=== PATIENT | male | born 1985 | race African-American/Black ===

== ENCOUNTER 2019-04-27 08:15 | Outpatient (CLI) | payer MEDICARE ==
[~2019-04-27] VITALS: Ht 172.7 cm; Wt 90.9 kg
--- NOTE | ~2019-04-27 | HEMODYNAMI ---
PATIENT:MARK ROBLERO MEDICAL RECORD: [id number] : 81 [id number] ADMISSION DATE: 04/27/19 Generatedon:04/27/201912:29 Patient name: MARK ROBLERO Patient #: [id number] SSN: DO B: 1985 Date of study: 04/27/2019 Page: Of Hemodynamic Procedure Report Patient Data Patient Demographics Procedure consent was obtained First Name: MARK Gender: Male Last Name: OSBALDO : 1985 [facility] Initial: B Age: 34 year(s) Patient #: [id number] Race: Black Additional ID: [id number] Contact details Address: [address] State: [place] City: [place] Zip code: [address] Admission Admission Data Admission Date: 04/27/2019 Admission Time: 8:15 Procedure Procedure Types Cath Procedure Peripheral Cath Diagnostic Procedure Miscellaneous Procedure Description Procedure Date Procedure Date: 04/27/2019 Procedure Start Time: 10:50 Procedure Staff Name Function Donte Denney MD Performing Physician Neftali Headley RT Monitor KENDALL DE SANTIAGO RT Monitor Tiff Mckeon RN Nurse Procedure Data Cath Procedure Fluoroscopy Diagnostic fluoroscopy Total fluoroscopy Time: time: 24.8 min 24.8 min Diagnostic fluoroscopy Total fluoroscopy dose: dose: 1522 mGy 1522 mGy Contrast Material Contrast Material Type Amount (ml) Isovue 300 90 Procedure Medications Medication Administration Route Dosage Heparin Flush Bag added to field 2 bags (1000units/500ml NS) Lidocaine 1% added to field 20 Fentanyl I.V. 25 mcg Versed I.V. 0.5 mg Versed I.V. 0.5 mg Fentanyl I.V. 25 mcg Fentanyl I.V. 25 mcg Versed I.V. 0.5 mg Hemodynamics Rest Heart Rate: 79 (bpm) Snapshots Pre Cath Intra NCS Post Cath Vital Signs Time Heart Resp SPO2 etCO2 NIBP (mmHg) Rhythm Pain Sedation Rate (ipm) (%) (mmHg) Status Level (bpm) 10:33:52 77 21 99 36 127/85(111) NSR 0 (11) 10(A) , No pain 10:38:02 80 15 97 36 126/86(109) NSR 0 (11) 10(A) , No pain 10:42:12 80 19 99 37.5 125/80(102) NSR 0 (11) 10(A) , No pain 10:46:20 80 18 97 36.8 131/83(100) NSR 0 (11) 10(A) , No pain 10:50:30 78 13 100 36.8 132/88(111) NSR 0 (11) 10(A) , No pain 10:54:40 77 15 100 33.8 136/87(113) NSR 0 (11) 10(A) , No pain 10:58:54 76 100 36.8 130/83(104) NSR 0 (11) 8(A) , No pain 11:03:03 79 13 100 39 136/89(103) NSR 0 (11) 8(A) , No pain 11:07:13 77 15 100 39 125/79(96) NSR 0 (11) 8(A) , No pain 11:11:25 78 16 99 40.5 123/74(92) NSR 0 (11) 8(A) , No pain 11:15:33 83 22 100 38.3 117/82(99) NSR 0 (11) 8(A) , No pain 11:20:28 83 15 100 37.5 136/90(114) NSR 0 (11) 8(A) , No pain 11:24:38 81 17 100 32.3 136/93(108) NSR 0 (11) 8(A) , No pain 11:28:46 83 17 99 39.8 127/85(104) NSR 0 (11) 8(A) , No pain 11:32:56 84 16 99 39.8 134/82(91) NSR 0 (11) 8(A) , No pain 11:37:08 91 13 97 41.3 128/85(99) NSR 0 (11) 8(A) , No pain 11:41:22 86 15 97 40.5 134/78(95) NSR 0 (11) 8(A) , No pain 11:45:38 93 14 98 39.8 120/70(95) NSR 0 (11) 8(A) , No pain 11:49:47 80 16 97 38.3 129/75(94) NSR 0 (11) 8(A) , No pain 11:54:02 86 15 98 39.8 124/77(90) NSR 0 (11) 8(A) , No pain 11:58:13 82 17 98 36 122/73(100) NSR 0 (11) 8(A) , No pain 12:02:26 87 15 98 38.3 124/74(91) NSR 0 (11) 8(A) , No pain 12:06:37 85 16 98 36.8 131/74(97) NSR 0 (11) 8(A) , No pain 12:10:49 81 17 99 37.5 119/76(98) NSR 0 (11) 8(A) , No pain 12:14:57 81 16 99 37.5 127/81(98) NSR 0 (11) 8(A) , No pain 12:19:07 80 18 99 36 135/86(105) NSR 0 (11) 8(A) , No pain 12:23:17 77 20 99 34.5 140/92(116) NSR 0 (11) 8(A) , No pain 12:27:29 77 21 100 34.5 141/99(123) NSR 0 (11) 8(A) , No pain Medications Time Medication Route Dose Verified Delivered Reason Notes Effec tiveness by by 10:56:38 Heparin Flush added 2 Donte Kent used for Bag to bags Олег Denney MD procedure (1000units/500ml field RICHARDSON NS) 10:56:55 Lidocaine 1% added 20ml Donte Kent used for to vial Олег Denney MD procedure field RICHARDSON 10:57:10 Fentanyl I.V. 25 Donte Matthew for mcg Mike Denney RN sedation 10:57:25 Versed I.V. 0.5 Donte Matthew for mg Mike Denney RN sedation 11:01:46 Versed I.V. 0.5 Donte Matthew for mg Mike Denney RN sedation 11:01:55 Fentanyl I.V. 25 Donte Matthew for mcg Mike Denney RN sedation 11:23:47 Fentanyl I.V. 25 Donte Matthew for mcg Mike Denney RN sedation 11:23:55 Versed I.V. 0.5 Donte Matthew for Mike Neff RN sedation Procedure Log Time Note 10:26:08 Tiff Mckeon RN sent for patient. Start room use. 10:26:17 Time tracking: Regular hours (M-F 7:00 - 5:00) 10:26:21 Plan of Care:Hemodynamics will remain stable., Cardiac rhythm will remain stable., Comfort level will be maintained., Respiratory function will remain adequate., Patient/ family verbilizes understanding of procedure., Procedure tolerated without complication., Recovers from procedure without complications.. 10:26:27 Patient received from Outpatients to IR Alert and oriented. Tansferred to table in Supine position. 10:26:28 Correct patient and procedure confirmed by team. 10:26:30 Signed procedure consent form obtained from patient. 10:26:31 ECG and BP/O2 sat monitors applied to patient. 10:26:32 Full Disclosure recording started 10:26:32 - 10:26:35 H&P Date Dictated: 04/27/2019 H&P Addendum completed by physician on day of procedure. (MUST COMPLETE FOR ALL OUTPATIENTS). 10:26:36 Pre-procedure instructions explained to patient. 10:26:36 Pre-op teaching completed and patient verbalized understanding. 10:26:37 Family in waiting room. 10:26:39 Patient NPO since Midnight. 10:26:43 Use device set IR Diagnostic 10:26:45 Bag Decanter (2002S) opened to sterile field. 10:26:45 Sterile Angiographic Pack opened to sterile field. 10:26:49 Tegaderm 4 x 4 (1626W) opened to sterile field. 10:26:57 Is the patient allergic to Iodine/contrast media? No. 10:27:00 Is patient on blood thinner?No 10:27:02 Patient diabetic? Yes. 10:27:04 If diabetic: On Metformin? No 10:27:06 - 10:27:06 ----Pre-sedation anethsthesia assessment.---- 10:27:09 Previous problem with sedation/anesthesia? No ? 10:27:10 Snore? Yes 10:27:12 Sleep apnea? No 10:27:14 Deviated septum? No 10:27:14 Opens mouth fully? Yes 10:27:15 Sticks out tongue? Yes 10:27:18 Airway obstruction? No ? 10:27:20 Dentures? No ? 10:32:49 Vital chart was started 10:32:50 Baseline sample Acquired. 10:34:24 Patient pain scale 0/10 no pain. 10:34:31 IV patent on arrival in left forearm with 0.9% NaCl at [facility]. 10:34:32 Sharps counted by scrub and verified by R.N. 10:34:32 Alarms reviewed by R. N. 10:34:36 Left Arm area was prepped with chlora-prep and draped in sterile fashio n 10:48:22 Physician arrived 10:48:23 --------ALL STOP TIME OUT------ 10:48:24 Final Timeout: patient, procedure, and site verified with staff and physician. All members of the team are in agreement. 10:48:28 Left Arm site verified by team. 10:48:33 Fire Safety Assessment: A--An alcohol-based skin anteseptic being used preoperatively., C--Open oxygen or nitrous oxide is being used. 10:48:49 5) <15 or on dialysis Very severe, or end stage kidney failure. 10:48:52 Sedation plan: IV Moderate Sedation Medication:Versed, Fentanyl 10:50:04 Local anesthetic to left arm with Lidocaine 1% by Donte Denney MD.INITIAL ACCESS ONLY 10:50:15 DOC .035 wire (P07807) opened to sterile field. 10:50:15 SHEATH 5FR [place] (MYD641) opened to sterile field. 10:50:16 Micropuncture VSI 4FR kit opened to sterile field. 10:56:38 Heparin Flush Bag (1000units/500ml NS) 2 bags added to field was administered by Donte Denney MD; used for procedure; 10:56:55 Lidocaine 1% 20ml vial added to field was administered by Donte Denney MD; used for procedure; 10:57:10 Fentanyl 25 mcg I.V. was administered by Tiff Mckeon RN; for sedation; 10:57:25 Versed 0.5 mg I.V. was administered by Tiff Mckeon RN; for sedation; 11:01:46 Versed 0.5 mg I.V. was administered by Tiff Mckeon RN; for sedation; 11:01:55 Fentanyl 25 mcg I.V. was administered by Tiff Mckeon RN; for sedation; 11:08:28 GLIDE WIRE ANGLE 180cm ([id number]) opened to sterile field. 11:08:29 GLIDE CATHETER 5FR ANGLED 65cm (CG507) opened to sterile field. 11:23:41 SHEATH 5FR [place] (IIO153) opened to sterile field. 11:23:43 Micropuncture VSI 4FR kit opened to sterile field. 11:23:47 Fentanyl 25 mcg I.V. was administered by Tiff Mckeon RN; for sedation; 11:23:49 Local anesthetic to right femoral vein with Lidocaine 1% by Donte Denney MD.ADDITIONAL ACCESS 11:23:55 Versed 0.5 mg I.V. was administered by Tiff Mckeon RN; for sedation; 11:31:23 GLIDE CATHETER 5FR ANGLED 100cm (CG508) opened to sterile field. 11:31:24 GLIDE WIRE MERIT Angled 260cm ([id number]) opened to sterile field. 11:31:48 BERGMAN 260 wire (L57434) opened to sterile field. 11:32:55 COOK SHEATH 6FR RAABE 70CM (S06356) opened to sterile field. 11:49:30 ROADRUNNER .035 260 glide wire ([id number]) opened to sterile field. 12:16:23 Procedure ended.(Physican Out) 12:17:51 Fluoroscopy time 24.80 minutes. 12:17:56 Fluoroscopy dose: 1522 mGy 12:17:56 Flurop Dose total: 1522 12:23:11 Contrast amount:Isovue 300 90ml. 12:23:12 Sharps counted by scrub and verified by R.N. 12:26:10 Insertion/operative site no bleeding no hematoma. 12:26:15 Post-op/insertion site Right Femoral vein dressed using a 4 x 4 and Tegaderm. 12:26:19 Post right femoral vein:stable 12:26:25 Post-op/insertion site Left Fistula dressed using a 4 x 4 and Tegaderm. 12:26:32 Post procedure instruction explained to patient.Patient verbalizes understanding. 12:26:33 Procedure and supply charges have been captured, reviewed, submitted an d are correct. 12:29:01 Report given to Outpatients. 12:29:04 Patient transfered to Outpatients with Stretcher. 12:29:25 Vital chart was stopped Device Usage Item Name Manufacture Quantity Catalog Number Hospital Part Current M inimal Lot# / Charge Number Stock Stock Serial# Code Bag Decanter Microtek 1 [id number] [id number] 5 () [employer] Sterile Cardinal 1 [id number] 348000 718825 5 Angiographic Health Pack Tegaderm 4 x 4 3M 1 1626W 667475 907122 529087 5 (1626W) DOC .035 wire [employer] 1 R53111 841852 838618 5 ([id number]) SHEATH 5FR Terumo 2 [id number] 051233 886090 474918 5 [place] ([id number]) Micropuncture VSI VASCULAR 2 7266V 348727 574698 5 VSI 4FR kit SOLUTIONS GLIDE WIRE Terumo 1 QZ3869 274897 575182 810533 5 ANGLE 180cm ([id number]) GLIDE CATHETER Terumo 1 CG507 593916 601273 5 5FR ANGLED 65cm (CG507) GLIDE CATHETER Terumo 1 CG508 177744 95611 364503 4 5FR ANGLED 100cm (CG508) GLIDE WIRE Merit 1 [id number] 078861 874287 639401 5 [id number] MERIT Angled Medical 260cm ([id number]) BERGMAN 260 wire [employer] 1 U31741 064973 60987 700933 5 ([id number]) COOK SHEATH 6FR [facility] 1 N40959 448456 74465 028337 1 [id number] RAABE 70CM ([id number]) ROADRUNNER .035 [facility] 1 C88634 538203 232939 426606 5 260 glide wire (K24378) Signature Audit [place] Stage Time Signature Unsigned Intra-Procedure 04/27/2019 Neftali 12:29:21 PM Kayode RT (R) (CV) Signatures Monitor : Neftali Signature : Kayode RT Date : Time : Monitor : KENDALL DE SANTIAGO RT Signature : Date : Time : [address] [place] [address]
[2019-04-27 08:52] LABS: BASOPHILS 0.4 % (0-2); EOSINOPHILS 12.8 % (0-7); HEMATOCRIT 36.3 % (42.0-54.0); HEMOGLOBIN 11.5 g/dL (13.5-17.5); IMMATURE GRANULOCYTES 0.2 % (0-5); LYMPHOCYTES 27.5 % (15-50); MCH 29.1 pg (26.0-34.0); MCHC 31.7 g/dL (31.0-37.0); MCV 91.9 fL (80.0-100.0); MEAN PLATELET VOLUME 8.8 fL (7.4-10.4); MONOCYTES 6.6 % (2-11); NEUTROPHILS 52.5 % (40-80); PLATELET COUNT 166 10x3/uL (130-400); RBC 3.95 10x6/uL (4.20-6.10); RDW 16.5 % (11.5-14.5); WBC 5.2 10x3/uL (4.8-10.8)
[2019-04-27 08:54] LABS: ANION GAP 12.1 mmol/L (8-16); CALCIUM 8.8 mg/dL (8.5-10.1); CARBON DIOXIDE 31.6 mmol/L (21.0-32.0); CREATININE - SERUM 8.4 mg/dL (0.6-1.3); POTASSIUM - SERUM 4.7 mmol/L (3.5-5.1)
[2019-04-27 08:55] LABS: APTT 29.7 SECONDS (22.8-39.4); INR 1.04 (0.85-1.17); PROTIME 13.1 SECONDS (11.6-15.0)
[2019-04-27] MEDS ORDERED: COREG25 MG PO (09:55)
[2019-04-27] MEDS ORDERED: NORVASC10 MG PO (09:55)
[2019-04-27] MEDS ORDERED: COLACE100 MG PO (09:56)
[2019-04-27] MEDS ORDERED: TUMS X-STR300 MG PO (09:56)
[2019-04-27] MEDS ORDERED: COZAAR25 MG PO (09:57)
[2019-04-27] MEDS ORDERED: LANTUS INSULIN10 ML SC (09:57)
[2019-04-27] MEDS ORDERED: ZANTAC300 MG PO (09:58)
[2019-04-27] MEDS ORDERED: RENVELA800 MG PO (09:58)
[2019-04-27 10:10] VITALS: Ht 172.7 cm; Wt 90.9 kg
== END 2019-04-27 14:45 | disposition home or self-care (01) ==
LOC: D.SP 08:15 → D.RAD 10:00 → D.SP 14:45
PROVIDERS: General Practice; ATTEND Internal Medicine Nephrology
DX: T82.858A Stenosis of other vascular prosthetic devices, implants and grafts, initial encounter (principal); N18.6 End stage renal disease; Z01.812 Encounter for preprocedural laboratory examination